=== PATIENT | female | born 1980 | race African-American/Black ===

== ENCOUNTER 2023-02-07 21:26 | Emergency (ER) | payer BC, OTHER ==
[~2023-02-07] VITALS: Ht 157.5 cm; Wt 68.1 kg
[2023-02-07 21:42] VITALS: BP 124/85
[2023-02-07 22:25] LABS: Basophils # (auto) 0 10 ^3/uL (0-0.2); Basophils % (auto) 0.4 % (0.0-2.0); Eosinophils # (auto) 0 10 ^3/uL (0-0.8); Hemoglobin 11.4 g/dL (12.2-16.2); Lymphocytes # (auto) 1.3 10 ^3/uL (0.4-5.4); Monocytes # (auto) 0.3 10 ^3/uL (0-1.3)
[2023-02-07 22:28] LABS: Eosinophils % (auto) 0.2 % (0.0-7.0); Hematocrit 34.4 % (36.0-46.0); Lymphocytes % (auto) 18.2 % (10.0-50.0); Mean Corpuscular Hemoglobin 25.8 pg (28.0-32.0); Monocytes % (auto) 4.1 % (0.0-12.0); Neutrophils # (auto) 5.5 10 ^3/uL (1.6-8.6); Neutrophils % (auto) 77.1 % (37.0-80.0); Nucleated Red Blood Cells % 0.1 %; Red Blood Cells 4.42 10^6/uL (4.0-5.20); White Blood Cell 7.2 10^3/uL (4.4-10.8)
[2023-02-07 22:36] LABS: Albumin 3.7 g/dL (3.4-5.0); Calcium 9.1 mg/dL (8.5-10.1); Potassium 3.5 mmol/L (3.5-5.1)
[2023-02-07 22:39] LABS: BUN/Creatinine Ratio 14.2 (10.0-20.0); Bilirubin, Total 0.5 mg/dL (0.2-1.0); Total Protein 7.8 g/dL (6.4-8.2)
[2023-02-07 22:41] LABS: Urine Bacteria FEW /hpf (None Seen); Urine Blood 3+ /uL (Negative); Urine Mucus FEW (None Seen); Urine Specific Gravity 1.029 (1.001-1.035); Urine WBC 1 /hpf (0 - 5)
[2023-02-08] MEDS ORDERED: TAMSULOSIN HYDROCHLORIDE 0.4 MG CAP PO ONE
[2023-02-08] MEDS ORDERED: HYDROcodone-ACET 5/325MG TAB PO ONE
[2023-02-08] MEDS ORDERED: NITROFURANTOIN 100 mg CAP PO ONE
[2023-02-08] MEDS ORDERED: NITR-87 PO (00:58)
[2023-02-08] MEDS ORDERED: TAM04C PO (00:58)
[2023-02-08] MEDS ORDERED: HYDR-4902 PO (00:58)
== END 2023-02-08 01:08 | disposition home or self-care (01) ==
LOC: ER 21:26
DX: N39.0 Urinary tract infection, site not specified (principal); K59.00 Constipation, unspecified
CPT/HCPCS: 36415; 74176; 80053; 81001; 83690; 85025